=== PATIENT | female | born 1960 | race Caucasian/White ===

== ENCOUNTER → 2018-11-23 | Outpatient (CLI) | payer BC ==
--- NOTE | 2018-11-23 19:29 | KCIC ---
Bilateral diagnostic digital mammograms: Reason for examination: Left breast lump for 2 weeks. Comparison is made to previous study dated 04/20/2016. Interpretation was made with the benefit of CAD. The skin and nipples show no abnormalities. No abnormal axillary lymph nodes are seen. The breast parenchyma shows scattered fibroglandular density. (Breast density: Category B.) There are no dominant masses, suspicious calcifications or architectural distortions. Impression: No evidence of malignancy. Ultrasound to follow. BI-RADS Category 0: Incomplete. Needs additional imaging evaluation. Left breast ultrasound: Ultrasound examination was performed of the left breast the area of clinical concern and at the left axilla. No discrete cystic or solid nodules or architectural distortion is seen. No abnormal appearing lymph nodes are seen in the left axilla. IMPRESSION: No focal abnormality evident in the left breast. Recommend routine mammographic follow-up. BI-RADS Category 1: Negative. "Our facility is accredited by the [employer] Mammography Program." This patient's information has been entered into a reminder system for the patient to be notified with the results of her examination and a target date for the next mammogram. Electronically signed by: Rena Pizarro MD (11/23/2018 4:42 PM) [id number]
--- NOTE | 2018-11-26 08:34 | KCIC ---
Bone Densitometry History: Screening for osteoporosis. Findings: Bone Densitometry was performed with dual photon absorption of the lumbar spine and left proximal femur. Lumbar Spine: Bone density is 1.204 g/cm2 for L1-L4. T-score is 1.4. Z-score is 2.7. Left total femur: Bone density is 1.098 g/cm2. T-score is 1.3. Z-score is 2.1. IMPRESSION: Bone mineral densities of the lumbar spine and left femur are normal. World Health Organization definition of osteoporosis and osteopenia for women: normal equals T score at or above -1.0 standard deviations; osteopenia equals T score between -1.0 and -2.5 standard deviations; osteoporosis equals T score at or below -2.5 standard deviations. Electronically signed by: Carter Gonzalez MD (11/26/2018 8:30 AM) [id number]
== END | disposition home or self-care (01) ==
LOC: KCIC MAMMO 12:49
PROVIDERS: ATTEND Nurse Practitioner Family
DX: Z13.820 Encounter for screening for osteoporosis (principal); N63.20 Unspecified lump in the left breast, unspecified quadrant
CPT/HCPCS: 76641; 77066; 77080